=== PATIENT | female | born 1940 | race Caucasian/White ===

== ENCOUNTER 2018-08-07 05:35 | Day surgery (SDC) | payer MEDICARE ==
[~2018-08-07] VITALS: Ht 160 cm; Wt 59.9 kg
[~2018-08-07 05:35] MED LIST: AEC81 PO; AMIT25TA9 PO; ASCO10007 PO; CALC600T12 PO; CHOL100018 PO; FISH1CAP63 PO; GLUC-145 PO; MULT-1203 PO
[2018-08-07] MEDS ORDERED: SODIUM CHLORIDE 0.9% 1000ML 1,000 ML IV ONE (06:04)
[2018-08-07 06:19] VITALS: BP 147/78
[2018-08-07] MEDS ORDERED: PROPOFOL 10 MG/ML 20ML VIAL IV ONE ×3 (07:01→07:19)
[2018-08-07 07:26] VITALS: BP 109/64
[2018-08-07 07:31] VITALS: BP 152/86
[2018-08-07 07:36] VITALS: BP 142/81
[2018-08-07 07:41] VITALS: BP 156/79
[2018-08-07 07:50] VITALS: BP 146/76
== END 2018-08-07 08:18 | disposition home or self-care (01) ==
LOC: DAH 05:35 → ENDO 05:35
PROVIDERS: ATTEND Internal Medicine
DX: K85.90 Acute pancreatitis without necrosis or infection, unspecified (principal); K86.9 Disease of pancreas, unspecified; K31.89 Other diseases of stomach and duodenum; C90.00 Multiple myeloma not having achieved remission; I10 Essential (primary) hypertension; E78.5 Hyperlipidemia, unspecified; Z98.890 Other specified postprocedural states; Z79.899 Other long term (current) drug therapy; Z88.8 Allergy status to other drugs, medicaments and biological substances
CPT/HCPCS: 43237; 43239; 88304; A4606; J2704 ×3; J7030; 43242